=== PATIENT | female | born 1980 | race Caucasian/White ===

== ENCOUNTER 2018-05-09 08:15 | Observation (INO) ==
--- NOTE | 2018-05-09 13:34 | P.HPIM ---
History of Present Illness Primary Care Physician: UNKNOWN Chief Complaint: chest pain History of Present Illness: patient is a 37 y/o female with history of Meniere disease who presented to ER with vertigo. she says that she started to have vertigo along with nausea and vomiting yesterday. she has minimal abdominal pain. she says that she took a couple of Meclizine at home with no significant improvement.she reports some tinnitus but no hearing loss. - Diagnosis (1) Vertigo (2) Meniere disease (3) Depression Review of Systems All other systems reviewed negative except as stated in HPI [facility] - History History Provided By: Patient - Medical History Medical History: Medical History (Last Updated 05/09/18 @ 08:45 by Vanessa Stacy MD) Depression Menieres disease - Surgical History Surgical History: Surgical History (Last Updated 05/09/18 @ 08:49 by Sissy Girard) Hx of tubal ligation - Tobacco History Second Hand Smoke Exposure: No Smoking Status: Never smoker - Alcohol History How Often Do You Have a Drink Containing Alcohol: Never - Substance Use History Substance History: No History of Abuse Medications and Allergies Active Medications: Active Medications Sodium Chloride (Ns Inj) 1,000 mls @ 100 mls/hr IV.CONT .Q10H KATHERINE Meclizine HCl (Antivert) 25 mg PO Q8H PRN PRN Reason: vertigo Ondansetron HCl (Zofran Inj) 4 mg IV.PUSH Q6H PRN PRN Reason: nausea Allergies Allergy/AdvReac Type Severity Reaction Status Date / Time No Known Allergies Allergy Verified 05/09/18 09:10 Home Medications Medication Instructions Recorded Confirmed Type bupropion HCl [Wellbutrin SR] 150 mg PO BID 05/09/18 05/09/18 History Exam Vital signs: Vital Signs 05/09/18 12:56 Temperature 97.5 F L Pulse Rate 69 Respiratory Rate 20 Blood Pressure 96/55 L Pulse Oximetry 100 - Constitutional no acute distress - Routine HEENT Exam Eye: Present: PERRL - Routine Neck Exam Present: supple, full ROM - Routine Respiratory Exam Present: CTA bilaterally - Routine Cardiovascular Exam Present: RRR - Routine Abdominal Exam Present: soft - Routine Extremities Exam Comments: no pedal edema. - Routine Neurological Exam Present: alert, oriented X3 Caprini VTE Risk Assessment Caprini VTE Risk Assessment: No/Low Risk (score <= 1) Caprini Risk Assessment Model: Point Value = 1 Point Value = 2 Point Value = 3 Point Value = 5 Age 41-60 Minor surgery BMI > 25 kg/m2 Swollen legs Varicose veins or History of unexplained or recurrent spontaneous Oral contraceptives or hormone replacement Sepsis (< 1 month) Serious lung disease, including pneumonia (< 1 month) Abnormal pulmonary function Acute myocardial infarction Congestive heart failure (< 1 month) History of inflammatory bowel disease Medical patient at bed rest Age 61-74 Arthroscopic surgery Major open surgery (> 45 min) Laparoscopic surgery (> 45 min) Malignancy Confined to bed (> 72 hours) Immobilizing plaster cast Central venous access Age >= 75 History of VTE Family history of VTE Factor V Leiden Prothrombin [id number] Lupus anticoagulant Anticardiolipin antibodies Elevated serum homocysteine Heparin-induced thrombocytopenia Other congenital or acquired thrombophilia Stroke (< 1 month) Elective arthroplasty Hip, pelvis, or leg fracture Acute spinal cord injury (< 1 month) Prophylaxis Regimen: Total Risk Factor Score Risk Level Prophylaxis Regimen 0-1 Low Early ambulation 2 Moderate Order ONE of the following: *Sequential Compression Device (SCD) *Heparin 5000 units SQ BID 3-4 Higher Order ONE of the following medications: *Heparin 5000 units SQ TID *Enoxaparin/Lovenox 40 mg SQ daily (WT < 150 kg, CrCl > 30 mL/min) *Enoxaparin/Lovenox 30 mg SQ daily (WT < 150 kg, CrCl > 10-29 mL/min) *Enoxaparin/Lovenox 30 mg SQ BID (WT < 150 kg, CrCl > 30 mL/min) AND/OR *Sequential Compression Device (SCD) 5 or more Highest Order ONE of the following medications: *Heparin 5000 units SQ TID (Preferred with Epidurals) *Enoxaparin/Lovenox 40 mg SQ daily (WT < 150 kg, CrCl > 30 mL/min) *Enoxaparin/Lovenox 30 mg SQ daily (WT < 150 kg, CrCl > 10-29 mL/min) *Enoxaparin/Lovenox 30 mg SQ BID (WT < 150 kg, CrCl > 30 mL/min) AND *Sequential Compression Device (SCD) Assessment and Plan - Assessment (1) Vertigo Code(s): R42 - Dizziness and giddiness Status: Acute Plan: patient with known history of Meniere disease. will start on Meclizine and antiemetics as needed.continue with supportive care with IV fluid.will start on diet when vertigo/ nausea improves. (2) Meniere disease Code(s): H81.09 - Meniere's disease, unspecified ear Status: Acute (3) Depression Code(s): F32.9 - Major depressive disorder, single episode, unspecified Status : Acute Plan: will verify and resume the home meds. - Plan Discussed Condition With: ER physician and the patient. Discharge Planning: possible tomorrow if improves. (3) Depression Qualifiers: Depression Type: unspecified Qualified Code(s): F32.9 - Major depressive disorder, single episode, unspecified
[2018-05-09] MEDS: Sod Chloride 0.9% Inj 1,000 ML IV.CONT SCH (16:14)
[2018-05-10] MEDS: Sod Chloride 0.9% Inj 1,000 ML IV.CONT SCH ×5 (02:17→22:21)
--- NOTE | 2018-05-10 08:02 | P.PN ---
Subjective Interval history: in no acute distress. still with vertigo. says that ' she's fine with liquid diet for now'. she says that she had a fall in bathroom last night. Physical Exam Vital signs: Vital Signs 05/09/18 12:56 05/09/18 16:22 05/09/18 20:00 Temperature 97.5 F L 97.8 F 99.2 F Pulse Rate 69 66 65 Respiratory Rate 20 20 20 Blood Pressure 96/55 L 98/56 L 90/53 L Pulse Oximetry 100 100 99 05/09/18 23:02 05/10/18 04:00 Temperature 98.3 F 98.2 F Pulse Rate 65 66 Respiratory Rate 16 20 Blood Pressure 96/53 L 99/60 L Pulse Oximetry 98 Intake & Output 05/09/18 05/10/18 05/10/18 18:59 06:59 18:59 Intake Total 540 / 540 1120 / 1120 Balance 540 / 540 1120 / 1120 Weight 104 kg Intake: IV 1000 / 1000 NS Inj 1,000 ML @ 100 mls/hr IV 1000 / 1000 .CONT .Q10H KATHERINE Rx#:[id number] Oral 540 / 540 120 / 120 Other: # Voids 2 2 # Incontinent Bowel Movements 0 Weight On Admission 103.9 kg - Constitutional no acute distress - Routine Respiratory Exam Present: CTA bilaterally - Routine Cardiovascular Exam Present: RRR - Routine Abdominal Exam Present: soft - Routine Extremities Exam Comments: no pedal edema. - Routine Neurological Exam Present: alert, oriented X3 Assessment and Plan - Assessment (1) Vertigo Code(s): R42 - Dizziness and giddiness Status: Acute Plan: hasn't improved as much-patient with known history of Meniere disease. will check CT head and consult neurology. will continue Meclizine and antiemetics as needed.continue with supportive care with IV fluid.continue with liquid diet for now. (2) Meniere disease Code(s): H81.09 - Meniere's disease, unspecified ear Status: Chronic Plan: has not improved -will check CT head and consult neurology. continue meclizine and supportive care. (3) Depression Code(s): F32.9 - Major depressive disorder, single episode, unspecified Status : Acute Plan: will verify and resume the home meds. - Plan Discharge Planning: when clinically improves- still with vertigo- not ready for discharge yet. (3) Depression Qualifiers: Depression Type: unspecified Qualified Code(s): F32.9 - Major depressive disorder, single episode, unspecified
--- NOTE | 2018-05-10 17:20 | CT ---
EXAM DATE: 05/10/2018 5:14 PM EDT AGE/SEX: 37 years / Female INDICATIONS: Vertigo. Fell last night. CLINICAL DATA: This is the patient's initial encounter. Patient reports that signs and symptoms have been present for 2 days and indicates a pain score of 3/10. MEDICAL/SURGICAL HISTORY: . Meniere's disease. Tubal ligation. RADIATION DOSE: 56.62 CTDI (mGy) COMPARISON: No prior exams available for comparison. TECHNIQUE: CT of the head without contrast. Using automated exposure control and adjustment of the mA and/or kV according to patient size, radiation dose was kept as low as reasonably achievable to ob tain optimal diagnostic quality images. DICOM format image data is available electronically for revi ew and comparison. FINDINGS: Noncontrast axial head CT demonstrates the ventricles to be normal in size and configuration with a n ormal sulcal pattern. No acute intracranial hemorrhage, acute cortical infarction, mass or midline sh ift is seen. There is periventricular hypodensity which is unusual and more than expected for a patie nt this age.Posterior fossa structures are unremarkable. Bone windows are unremarkable. CONCLUSION: No evidence of acute intracranial pathology. White matter abnormality which may reflect chronic ische beth change but unusual for a patient of this age and correlation with clinical history and possibly M RI is recommended Electronically signed by: Milad Anaya MD 05/10/2018 5:18 PM EDT
--- NOTE | 2018-05-10 17:30 | MB ---
cc: Nancy Junior MD DATE: 05/10/2018 DATE OF : 1980 AGE: [age] years old. REASON FOR CONSULTATION: Vertigo. History of Meniere's disease. HISTORY OF PRESENT ILLNESS: This is a pleasant 37-year-old woman diagnosed with Meniere's many years ago, in 2001 in [place]. She comes in because of refractory dizziness, severe room spinning. She usually takes a couple of doses of meclizine, rests a day or two and gets better. It is always accompanied with some headache. She does not know about the diet for many years. She has not seen ENT. She is a little bit better now, trying to eat some Jell-O. No headache. MEDICATIONS: Her home medicines are bupropion 150 mg b.i.d. ALLERGIES: NONE. PAST SURGICAL HISTORY: Tubal ligation. SOCIAL HISTORY: She never smoked. No drugs. PHYSICAL EXAMINATION: VITAL SIGNS: Temperature is 98, pulse 59, respiratory rate 17, blood pressure 100/55. NECK: Supple. HEART: Regular. NEUROLOGIC: Awake, alert, oriented and fluent. Pupils reactive. Extraocular muscles are intact. No significant nystagmus seen. Face is symmetrical. Tongue is midline. Motor: There is no drift or leg lag. Cerebellar is normal. DTRs are 1+. Toes are downgoing. Gait is withheld for her safety. LABORATORY DATA: CBC: White count is 14, hemoglobin 13.8, hematocrit 43.4, platelets 305,000. Chemistries: Glucose is 121, AST 14, ALT 20. IMPRESSION: Vertigo, likely related to her Meniere's. PLAN: I discussed with her that at this point in time I could not put her on a diuretic due to her low blood pressure, but she needs to follow a strict diet of low sodium. Avoid caffeine as well. Stress can induce it as well. We will try her on some diazepam low dose p.r.n., may help her more than the meclizine, get her out of bed with physical therapy. If a CT of the brain has not been done, certainly that can be considered versus an MRI. She can always followup with ENT as an outpatient to have a formal evaluation as well as an audiology test. If she feels better by morning, certainly can be discharged home. MD BRIDGER Lilly , 05:05 PM , 05:29 PM
[2018-05-11] MEDS: Sod Chloride 0.9% Inj 1,000 ML IV.CONT SCH ×3 (03:52→23:43)
[2018-05-11 06:02] LABS: Chloride 109 meq/L (98-107); Potassium 3.8 meq/L (3.5-5.1); Sodium 144 meq/L (136-145)
[2018-05-11 06:05] LABS: Anion Gap 6 meq/L (5-15); Calcium 8.2 mg/dL (8.5-10.1); Carbon Dioxide 28.8 meq/L (21.0-32.0)
[2018-05-11 06:06] LABS: Blood Urea Nitrogen 10 mg/dL (7-18); Glucose,Random 82 mg/dL (74-106)
[2018-05-11 06:09] LABS: Glomerular Filtration Rate Greater Than 89 mL/min (>89)
--- NOTE | 2018-05-11 09:08 | P.PN ---
Subjective Interval history: in no acute distress.although looks slightly more comfortable today still complaining of vertigo and dizziness. Physical Exam Vital signs: Vital Signs 05/10/18 12:00 05/10/18 16:00 05/10/18 20:00 Temperature 98.0 F 98.0 F 99.2 F Pulse Rate 59 L 59 L 65 Respiratory Rate 17 17 15 Blood Pressure 100/55 L 111/62 88/55 L Pulse Oximetry 99 92 L 05/11/18 00:00 05/11/18 01:10 Temperature 98.2 F 98.4 F Pulse Rate 63 74 Respiratory Rate 20 19 Blood Pressure 89/58 L 92/68 L Pulse Oximetry 99 Intake & Output 05/10/18 05/11/18 05/11/18 18:59 06:59 18:59 Intake Total 1720 / 1720 1000 / 1000 Balance 1720 / 1720 1000 / 1000 Intake: IV 1000 / 1000 1000 / 1000 NS Inj 1,000 ML @ 100 mls/hr IV 1000 / 1000 1000 / 1000 .CONT .Q10H KATHERINE Rx#:[id number] Oral 720 / 720 0 / 0 Other: # Voids 4 # Bowel Movements 0 - Routine HEENT Exam Eye: Present: PERRL - Routine Neck Exam Present: supple, full ROM - Routine Respiratory Exam Present: CTA bilaterally - Routine Cardiovascular Exam Present: RRR - Routine Abdominal Exam Present: soft - Routine Extremities Exam Comments: no pedal edema. - Routine Neurological Exam Present: alert, oriented X3 Results - Labs CBC & Chem 7: 05/11/18 05:04 Laboratory Results - last 24 hr 05/10/18 05/11/18 11:10 05:04 Sodium 144 Potassium 3.8 Chloride 109 H Carbon Dioxide 28.8 Anion Gap 6 BUN 10 Creatinine 0.56 Estimated GFR Greater than 89 Random Glucose 82 Calcium 8.2 L D Beta HCG, Qual Cancelled Beta HCG, Quant Less than 1 - Imaging Impressions Head CT 05/10/18 00:00 CONCLUSION: No evidence of acute intracranial pathology. White matter abnormality which may reflect chronic ischemic change but unusual for a patient of this age and correlation with clinical history and possibly MRI is recommended Assessment and Plan - Assessment (1) Vertigo Code(s): R42 - Dizziness and giddiness Status: Acute Plan: patient with known history of Meniere disease. Ct head with chronic white matter disease; will check MRI brain- advance the diet to low-sodium- started on cardizem- continue with supportive care with IV fluid. neurology consult appreciated. (2) Meniere disease Code(s): H81.09 - Meniere's disease, unspecified ear Status: Chronic Plan: as noted above. (3) Depression Code(s): F32.9 - Major depressive disorder, single episode, unspecified Status : Acute Plan: will verify and resume the home meds. - Plan Discharge Planning: when clinically improves- pending MRI brain- not ready for discharge. (3) Depression Qualifiers: Depression Type: unspecified Qualified Code(s): F32.9 - Major depressive disorder, single episode, unspecified
[2018-05-11] MEDS: diazePAM 2 MG Tablet PO PRN (15:04)
[2018-05-11] MEDS ORDERED: Gadodiamide PF Inj 287 MG/ML 5 ML Syringe (for RAD MRI) IV.PUSH ONE (16:55)
--- NOTE | 2018-05-11 17:24 | MR ---
EXAM DATE: 05/11/2018 5:16 PM EDT AGE/SEX: 37 years / Female INDICATIONS: Dizziness. CLINICAL DATA: This is the patient's initial encounter. Patient reports that signs and symptoms have been present for 2 days and indicates a pain score of 0/10. MEDICAL/SURGICAL HISTORY: Vertigo. Tubal ligation. Cholecystectomy. COMPARISON: No prior exams available for comparison. TECHNIQUE: Multiplanar, multisequence examination of the brain was performed without and with 12 ml O mniscan (gadodiamide) contrast as a single exam dose. FINDINGS: MRI of the brain is performed in sagittal, axial and coronal planes. The craniocervical junction and midline structures are unremarkable. Diffusion weighted images demonstrate no abnormality. No acute c ortical infarction, acute hemorrhage, mass effect or midline shift is seen.There is severe periventri cular white matter abnormality. Considering the patient's age this may reflect multiple sclerosis and correlation with clinical history is necessary. Other infectious and inflammatory etiologies should be considered. Following the administration of contrast no abnormal enhancement is identified. Poste rior fossa structures demonstrate small vessel vascular disease in the maame at the level of the super ior cerebellar peduncle. CONCLUSION: Extensive periventricular white matter abnormality which may reflect multiple sclerosis in the formerly [facility] clinical setting. No active plaques are identified. Please see above. Electronically signed by: Milad Anaya MD 05/11/2018 5:23 PM EDT
[2018-05-11] MEDS: Acetaminophen 325 MG Tablet PO PRN (19:04)
[2018-05-12] MEDS: Sod Chloride 0.9% Inj 1,000 ML IV.CONT SCH (07:58)
[2018-05-12] MEDS: diazePAM 2 MG Tablet PO PRN ×2 (07:58→17:09)
--- NOTE | 2018-05-12 12:26 | P.PN ---
Subjective Interval history: in no acute distress.feels and looks better today.still with some vertigo but it 's better today. Physical Exam Vital signs: Vital Signs 05/11/18 16:00 05/11/18 20:00 05/12/18 00:00 Temperature 97.3 F L 99.1 F 98.2 F Pulse Rate 70 54 L 48 L Respiratory Rate 16 16 16 Blood Pressure 100/55 L 104/59 L 111/57 L Pulse Oximetry 100 100 100 05/12/18 08:00 Temperature 96.7 F L Pulse Rate 62 Respiratory Rate 14 Blood Pressure 100/63 Pulse Oximetry 99 Intake & Output 05/11/18 05/12/18 05/12/18 18:59 06:59 18:59 Intake Total 1700 / 1700 1000 / 1000 1000 / 1000 Output Total 700 / 700 Balance 1700 / 1700 300 / 300 1000 / 1000 Weight 52.4 kg Intake: IV 1000 / 1000 1000 / 1000 1000 / 1000 NS Inj 1,000 ML @ 100 mls/hr IV 1000 / 1000 1000 / 1000 1000 / 1000 .CONT .Q10H KATHERINE Rx#:[id number] Oral 100 / 100 Oral Supplement 600 / 600 Output: Urine 700 / 700 - Routine Respiratory Exam Present: CTA bilaterally - Routine Cardiovascular Exam Present: RRR - Routine Abdominal Exam Present: soft - Routine Extremities Exam Comments: no pedal edema. - Routine Neurological Exam Present: alert, oriented X3 Results - Labs CBC & Chem 7: 05/11/18 05:04 - Imaging Impressions Head MRI 05/11/18 00:00 CONCLUSION: Extensive periventricular white matter abnormality which may reflect multiple sclerosis in the appropriate clinical setting. No active plaques are identified. Please see above. Assessment and Plan - Assessment (1) Vertigo Code(s): R42 - Dizziness and giddiness Status: Acute Plan: patient with known history of Meniere disease. CT head with chronic white matter disease-MRI brain with possible MS- d/w today and recommended outpatient follow-up. advanced the diet to low-sodium- started on cardizem- continue with supportive care with IV fluid. neurology consult appreciated. (2) Meniere disease Code(s): H81.09 - Meniere's disease, unspecified ear Status: Chronic Plan: as noted above. (3) Depression Code(s): F32.9 - Major depressive disorder, single episode, unspecified Status : Acute Plan: f/u as outpatient. - Plan Discharge Planning: within the next one-two days if continues to improve. (3) Depression Qualifiers: Depression Type: unspecified Qualified Code(s): F32.9 - Major depressive disorder, single episode, unspecified
[2018-05-12] MEDS: Acetaminophen 325 MG Tablet PO PRN ×2 (13:26→21:24)
[2018-05-13] MEDS: Acetaminophen 325 MG Tablet PO PRN (02:10)
[2018-05-13] MEDS: Sod Chloride 0.9% Inj 1,000 ML IV.CONT SCH (04:53)
--- NOTE | 2018-05-13 14:49 | P.DS ---
Date of admission: 05/09/18 12:45 Primary care physician: UNKNOWN Brief History from admission: patient is a 37 y/o female with history of Meniere disease who presented to ER with vertigo. she says that she started to have vertigo along with nausea and vomiting yesterday. she has minimal abdominal pain. she says that she took a couple of Meclizine at home with no significant improvement.she reports some tinnitus but no hearing loss. DS: Diagnosis - Discharge Diagnosis (1) Meniere disease Status: Chronic (2) Vertigo Status: Acute DS: Medications - Discharge Medications Prescriptions: meclizine 25 mg PO Q8H PRN #60 tab PRN Reason: vertigo DS: Summary Hospital Course: Patient was seen and treated for recurrence of years disease and severe vertigo. She did well with meclizine and physical therapy. Symptoms improved enough for her to ambulate with durable medical equipment and she was discharged home with physical therapy - Time Spent with Patient Total time spent providing and/or coordinating discharge services: - Quality: VTE Deep Vein Thrombosis/Pulmonary Embolism Present on Admission: No Exam Vital signs: Vital Signs 05/12/18 16:00 05/12/18 23:24 05/13/18 02:27 Temperature 97.3 F L 97.2 F L 98.8 F Pulse Rate 51 L 51 L 71 Respiratory Rate 16 16 16 Blood Pressure 135/81 124/65 107/60 Pulse Oximetry 97 98 98 05/13/18 07:30 05/13/18 08:00 05/13/18 11:18 Temperature 96.9 F L 97.4 F L Pulse Rate 60 61 Respiratory Rate 20 20 20 Blood Pressure 102/63 112/66 Pulse Oximetry 100 99 Intake & Output 05/12/18 05/13/18 05/13/18 18:59 06:59 18:59 Intake Total 1999 400 / 400 Balance 1999 400 / 400 Weight 52.4 kg Intake: IV 1999 NS Inj 1,000 ML @ 100 mls/hr IV 1999 .CONT .Q10H KATHERINE Rx#:[id number] Oral 400 / 400 Other: # Voids 2 Narrative: GENERAL: Patient calm resting and without complaints SKIN: Warm and dry. No rashes or ecchymotic injuries EYES: Pupils equal and round. No scleral icterus. No injection or drainage. ENT: External ear exam normal. No acute nasal bleeding or discharge. Mucous membranes pink and moist. CARDIOVASCULAR: Regular rate and rhythm. No murmurs gallops or rubs appreciated RESPIRATORY: Good air flow and effort without accessory muscle use. Clear to auscultation. Breath sounds equal bilaterally. GASTROINTESTINAL: Abdomen soft, non-tender, nondistended. Hepatic and splenic margins not palpable. MUSCULOSKELETAL: Extremities without clubbing, cyanosis, or edema. No obvious deformities. NEUROLOGICAL: Awake and alert. No obvious cranial nerve deficits. Motor grossly within normal limits. Five out of 5 muscle strength in the arms and legs. Normal speech. Results Procedures completed during hospitalization: None - Impressions ITS Impressions Head CT 05/10/18 00:00 CONCLUSION: No evidence of acute intracranial pathology. White matter abnormality which may reflect chronic ischemic change but unusual for a patient of this age and correlation with clinical history and possibly MRI is recommended Head MRI 05/11/18 00:00 CONCLUSION: Extensive periventricular white matter abnormality which may reflect multiple sclerosis in the appropriate clinical setting. No active plaques are identified. Please see above. Discharge Plan - Discharge Disposition Patient Disposition: /Home Health Service - Discharge Condition Condition: Stable - Discharge Order Discharge Orders: Discharge Order (Routine); Ordered 05/13/18 Ordered By: Amanda Ambrose - Discharge Details Anticipated Discharge Date: 05/13/18 - Physicians Team Primary Care Provider: UNKNOWN, Attending Provider: Amanda Ambrose Other Providers: Nancy Junior MD - Rxs /Orders / Referrals /Forms Prescriptions: New meclizine 25 mg Tablet 25 mg PO Q8H PRN (Reason: vertigo) Qty: 60 RF: 0 Continue bupropion HCl [Wellbutrin SR] 150 mg Tablet Extended Release 12 Hr 150 mg PO BID Ambulatory Orders / Order Sets / D[facility] (Routine) Location: Determined by Patient Ordered By: Amanda Ambrose Walker With Front Wheels (1 each) (Routine) Location: Determined by Patient Ordered By: Amanda Ambrose Referrals: UNKNOWN, [Primary Care Provider] - See Instructions
--- NOTE | 2018-05-13 14:51 | P.DCO ---
- Physical Therapy Order: Evaluate and treat, Improve ambulation - Home Health Nursing Order: Medical education - Certification I have seen patient Rowan Pollard on 05/13/18. My clinical findings support the need for the requested home health care services because: Limited mobility due to disease progression, High risk of falls I certify that my clinical findings support that this patient is homebound because: Unsteady gait/balance
== END 2018-05-13 16:14 | disposition home health service (06) ==
LOC: PH3 08:15 → NEDDLT 08:15 → PH3 05-11 09:23
PROVIDERS: ADMIT Hospitalist; ATTEND Hospitalist